=== PATIENT | male | born 1995 | race Two or more races ===

== ENCOUNTER → 2018-11-18 | Outpatient (CLI) | payer OTHER ==
[~2018-11-18] MED LIST: COLACE100 MG PO; IBUPROFEN800 MG PO; MIRALAX12 EA PO; ZITHROMAX500 MG PO
== END | disposition home or self-care (01) ==
LOC: MAMO-SONO 11-17 14:15 → SONOGRAMA 10:12
DX: R10.2 Pelvic and perineal pain (principal); Z00.00 Encounter for general adult medical examination without abnormal findings

== ENCOUNTER → 2019-01-04 | Emergency (ER) | payer OTHER ==
[~2019-01-04] VITALS: Ht 170.2 cm; Wt 64.4 kg
== END | disposition home or self-care (01) ==
LOC: ER 21:25
DX: B34.9 Viral infection, unspecified (principal)

== ENCOUNTER 2023-05-23 19:23 | Emergency (ER) | payer OTHER ==
[~2023-05-23] VITALS: Ht 172.7 cm; Wt 81.6 kg
[2023-05-23] MEDS ORDERED: PEPCID AC20 MG PO (20:33)
[2023-05-23] MEDS ORDERED: LEVO-T25 MCG (20:34)
[2023-05-23] MEDS ORDERED: CARAFATE1 GM PO (21:07)
== END 2023-05-23 21:20 | disposition home or self-care (01) ==
LOC: ER 19:23
DX: K29.70 Gastritis, unspecified, without bleeding (principal)